=== PATIENT | female | born 1985 | race Caucasian/White ===

== ENCOUNTER 2017-04-16 08:59 | Emergency (ER) | END 2017-04-16 10:15 | disposition home or self-care (01) ==

== ENCOUNTER 2018-03-15 09:34 | Emergency (ER) | END 2018-03-15 10:14 | disposition home or self-care (01) ==

== ENCOUNTER 2018-04-20 15:39 | Emergency (ER) | payer MEDICAID ==
[~2018-04-20] VITALS: Ht 167.6 cm; Wt 64.3 kg
[~2018-04-20 15:39] MED LIST: NAPR-985 PO; OSLT75C PO
[2018-04-20 15:43] VITALS: Ht 167.6 cm; Wt 64.3 kg
[2018-04-20] MEDS ORDERED: ACETAMINOPHEN 325 MG TAB PO ONE (18:30)
[2018-04-20] MEDS ORDERED: ACET500C5 PO (20:17)
--- NOTE | 2018-04-20 20:20 | ERD ---
ER Documentation Chief Complaint Chief Complaint Complains of severe back pain x 5 days HPI 33-year-old female presents with a 5-day history of low back pain. She is approximately 12 weeks by dates. She denies any vaginal bleeding. She has some mild right mid abdominal pain. She denies fevers, vomiting. She denies any urinary complaints. She denies any history of fall or injury. She is a G2 para 1. ROS All systems reviewed and are negative except as per history of present illness. Medications Home Meds Active Scripts Acetaminophen* (Tylophen*) 500 Mg Capsule, 1 CAP PO Q6H PRN for PAIN AND OR ELEVATED TEMP, #20 CAP Prov:DENI FELDER MD 04/20/18 Naproxen* (Naprosyn*) 500 Mg Tablet, 500 MG PO BID PRN for PAIN AND/OR INFLAMMATION, #20 TAB Prov:NICOLA FLANAGAN PA-C 04/16/17 Oseltamivir Phosphate* (Tamiflu*) 75 Mg Capsule, 75 MG PO BID for 5 Days, #10 CAP Prov:NICOLA FLANAGAN PA-C 04/16/17 Allergies Allergies: Coded Allergies: No Known Allergy (Unverified , 03/15/18) PMhx/Soc Hx Neurological Disorder: No Hx Respiratory Disorders: No Hx Cardiac Disorders: No Hx Psychiatric Problems: No Hx Miscellaneous Medical Probl: No Hx Alcohol Use: No Hx Substance Use: No Hx Tobacco Use: No FmHx Family History: No diabetes, No coronary disease, No other Physical Exam Vitals Vital Signs Date Temp Pulse Resp B/P (MAP) Pulse Ox O2 O2 Flow FiO2 Time Delivery Rate 04/20/18 98.0 98 20 129/65 100 15:43 (86) Physical Exam Const: No acute distress Head: Atraumatic Eyes: Normal Conjunctiva ENT: Normal External Ears, Nose and Mouth. Neck: Full range of motion. No meningismus. Resp: Clear to auscultation bilaterally Cardio: Regular rate and rhythm, no murmurs Abd: Soft, non tender, non distended. Normal bowel sounds Skin: No petechiae or rashes Back: No midline or flank tenderness. Tenderness L4-5 paraspinous muscles. No midline tenderness or deformities. Ext: No cyanosis, or edema Neur: Awake and alert Psych: Normal Mood and Affect Results 24 hrs Laboratory Tests Test 04/20/18 18:18 Urine Color YELLOW Urine Clarity SLIGHTLY CLOUDY Urine pH 5.0 Urine Specific [place] 1.029 Urine Ketones NEGATIVE mg/dL Urine Nitrite NEGATIVE mg/dL Urine Bilirubin NEGATIVE mg/dL Urine Urobilinogen NEGATIVE mg/dL Urine Leukocyte Esterase NEGATIVE Yris/ul Urine Microscopic RBC 1 /HPF Urine Microscopic WBC 0 /HPF Urine Squamous Epithelial Cells FEW /HPF Urine Calcium Oxalate Crystals MODERATE /HPF Urine Mucus MODERATE /HPF Urine Hemoglobin NEGATIVE mg/dL Urine Glucose NEGATIVE mg/dL Urine Total Protein NEGATIVE mg/dl Current Medications Medications Dose Sig/Denis Start Time Status Last (Trade) Ordered Route PRN Stop Time Admin Dose Reason Admin 650 mg ONCE ONCE 04/20/18 DC 04/20/18 Acetaminophen PO 18:30 04/20/18 18:18 (Tylenol 18:31 Tab) Procedures/MDM Urine is negative for significant acute abnormalities. Pelvic ultrasound shows approximately 15-week intrauterine without appreciable abnormalities. Patient presents with low back pain for last 4 days, likely muscular skeletal without evidence of cauda equina syndrome, epidural abscess, fracture, dislocation. We will treat with Tylenol, instructions for back exercises, p rimary care follow-up and return precautions. The patient was stable with no new complaints during the ER course. Clinically, there is no current evidence to suggest meningitis, sepsis, acute abdomen, pneumonia, stroke, acute coronary syndrome, pulmonary embolism, aortic dissection or any other emergent condition appearing to require further evaluation or hospitalization. Patient counseled regarding my diagnostic impression and care plan. Prior to discharge all questions answered. Pt agrees with treatment plan and understands strict return precautions. Pt is instructed to follow up with primary care provider within 24- 48 hours. Precautionary instructions provided including instructions to return to the ER if not improving or for any worsening or changing symptoms or concerns. Departure Diagnosis: Primary Impression: Back pain Back pain location: back pain in unspecified location Chronicity: unspecified Back pain laterality: unspecified Qualified Codes: M54.9 - Dorsalgia, unspecified Condition: Stable Patient Instructions: Back Pain (Acute Or Chronic) Referrals: NO PRIMARY,CARE PHYSICIAN (PCP) Additional Instructions: Examines normal hoy. Cheque otro vez con vee doctor primario en el proximo king or regresa para mas o nueva simptomas. DENI FELDER MD Apr 20, 2018 20:20
[2018-04-20 20:47] VITALS: BP 124/60; PULSE 94; RESP 15
== END 2018-04-20 20:47 | disposition home or self-care (01) ==
LOC: FTE 15:39
DX: O99.89 Other specified diseases and conditions complicating pregnancy, childbirth and the puerperium (principal); M54.5 Low back pain; Z3A.15 15 weeks gestation of pregnancy
CPT/HCPCS: 76801; 81001; Z7502; Z7610; 81003

== ENCOUNTER 2018-09-05 12:32 | Emergency (ER) | payer MEDICAID ==
[~2018-09-05] VITALS: Wt 78.8 kg
[~2018-09-05 12:32] MED LIST changes: +ACET500C5 PO; +OSEL75CA23 PO; -OSLT75C PO
[2018-09-05 12:39] VITALS: BP 134/81; PULSE 106; RESP 20
--- NOTE | 2018-09-05 13:08 | ERD ---
ER Documentation Chief Complaint Chief Complaint L SIDED HEADACHE X 4 DAYS, PAIN TO L BUTTOCK; 33 WEEKS HPI 33-year-old woman was 33 weeks by previously confirmed ultrasound and dates presents with left-sided headache x4 to 5 days, pain is nonexertional nonradiating, constant and daily. She has had headaches in the past and denies that this is the worst headache of her life. She also has complaints of low back pain similar to prior episodes. She denies neck pain or neck stiffness, no fevers or chills, no chest pain or shortness of breath, no vaginal bleeding or dysuria. ROS All systems reviewed and are negative except as per history of present illness. Medications Home Meds Active Scripts Acetaminophen* (Tylenol*) 325 Mg Tablet, 2 TAB PO Q8 PRN for PAIN AND OR ELEVATED TEMP, #30 TAB Prov:DONALD GIORDANO MD 09/05/18 Acetaminophen* (Tylophen*) 500 Mg Capsule, 1 CAP PO Q6H PRN for PAIN AND OR ELEVATED TEMP, #20 CAP Prov:DENI FELDER MD 04/20/18 Naproxen* (Naprosyn*) 500 Mg Tablet, 500 MG PO BID PRN for PAIN AND/OR INFLAMMATION, #20 TAB Prov:NICOLA FLANAGAN PA-C 04/16/17 Oseltamivir Phosphate* (Tamiflu*) 75 Mg Capsule, 75 MG PO BID for 5 Days, #10 CAP Prov:NICOLA FLANAGAN PA-C 04/16/17 Allergies Allergies: Coded Allergies: No Known Allergy (Unverified , 03/15/18) PMhx/Soc History of Surgery: Yes (Uterus) Anesthesia Reaction: No Hx Neurological Disorder: No Hx Respiratory Disorders: No Hx Cardiac Disorders: No Hx Psychiatric Problems: No Hx Miscellaneous Medical Probl: No Hx Alcohol Use: No Hx Substance Use: No Hx Tobacco Use: No FmHx Family History: No diabetes Physical Exam Vitals Vital Signs Date Temp Pulse Resp B/P (MAP) Pulse Ox O2 O2 Flow FiO2 Time Delivery Rate 09/05/18 98.1 106 20 134/81 98 12:39 (98) Physical Exam GENERAL: Well-developed, well-nourished, well-hydrated, in no apparent distress, looks nontoxic in appearance HEENT: Moist mucous membranes, pink conjunctiva, no cervical spine tenderness or step-off deformities, no goiter, no jaundice or icterus, extraocular movements intact without pain. No submandibular induration, and no pharyngeal erythema NEURO: Alert and oriented 3, cranial nerves II through XII intact bilaterally, pupils equal round reactive to light, no focal deficits or facial asymmetry, sensation intact distally Strength 5/5 in upper and lower extremities bilaterally CARDIAC: Regular rate and rhythm, no murmurs rubs or gallops LUNGS: Clear bilaterally no wheezing crackles or stridor ABDOMEN: Soft nontender gravid abdomen, no rigidity SKIN: Warm and dry to touch, no abrasions, contusions, or hematomas, no lacerations, no ecchymosis, no target lesions, and without ulcers EXTREMITIES: No clubbing cyanosis or edema, calves are bilaterally symmetrical, no Homans sign, no popliteal cord sign. Distal pulses equal and bilateral PSYCH: Normal affect without agitation or irritability Results 24 hrs Laboratory Tests Test 09/05/18 13:35 Urine Color YELLOW Urine Clarity CLEAR Urine pH 6.0 Urine Specific [place] 1.009 Urine Ketones NEGATIVE mg/dL Urine Nitrite NEGATIVE mg/dL Urine Bilirubin NEGATIVE mg/dL Urine Urobilinogen NEGATIVE mg/dL Urine Leukocyte Esterase NEGATIVE Yris/ul Urine Hemoglobin NEGATIVE mg/dL Urine Glucose 2+ mg/dL Urine Total Protein NEGATIVE mg/dl Current Medications Medications Dose Sig/Denis Start Time Status Last (Trade) Ordered Route PRN Stop Time Admin Dose Reason Admin 650 mg ONCE ONCE 09/05/18 DC 09/05/18 Acetaminophen PO 13:30 14:01 (Tylenol 09/05/18 13:31 Tab) Procedures/MDM I administered acetaminophen 650 mg p.o. x1. Urinalysis was negative for infection. Differential diagnoses considered, included but not limited to acute coronary syndrome, pulmonary embolism, aortic dissection, abdominal aortic aneurysm, sepsis, stroke, meningitis, encephalitis, pneumonia, appendicitis, cholecystitis, bowel obstruction, pyelonephritis, nephrolithiasis, cystitis, as well as metabolic, hematologic, and electrolyte abnormalities. As well as abscess, cellulitis, fractures, and dislocations. Patient feels much better at this time, and vital signs are normal, symptoms have improved. I did give strict instructions to return to the ED if symptoms continue or worsen, patient will otherwise follow-up with primary care physician. Patient understood instructions and agreed to plan. Disclaimer: Inadvertent spelling and grammatical errors are likely due to EHR/dictation software use and do not reflect on the overall quality of patient care. Also, please note that the electronic time recorded on this note does not necessarily reflect the actual time of the patient encounter. Departure Diagnosis: Primary Impression: Headache Headache type: tension-type Headache chronicity pattern: acute headache Intractability: not intractable Qualified Codes: G44.209 - Tension-type headache, unspecified, not intractable Additional Impression: Third trimester Condition: Good DONALD GIORDANO MD September 05, 2018 13:08
[2018-09-05] MEDS ORDERED: ACETAMINOPHEN 325 MG TAB PO ONE (13:30)
[2018-09-05] MEDS ORDERED: ACET325T33 PO (14:44)
== END 2018-09-05 15:02 | disposition home or self-care (01) ==
LOC: FTE 12:32
DX: O99.353 Diseases of the nervous system complicating pregnancy, third trimester (principal); G44.209 Tension-type headache, unspecified, not intractable; Z3A.33 33 weeks gestation of pregnancy
CPT/HCPCS: 81003; Z7502; Z7610; 99283

== ENCOUNTER 2018-09-18 11:11 | Outpatient (CLI) | payer MEDICAID ==
[~2018-09-18 11:11] MED LIST changes: +ACET325T33 PO
[2018-09-18] MEDS ORDERED: PREN1TAB71 PO (11:25)
[2018-09-18] MEDS ORDERED: ACETAMINOPHEN 500 MG TAB PO STA (13:13)
--- NOTE | 2018-09-18 14:14 | PN ---
Triage Information Date/Time September 182018 Reason for visit: Sent in from clinic to rule out -induced hypertension because of a headache Weeks of Gestation 35 weeks plus /Para 2 para 1 Diabetes: none Hypertention: none Objective See nurse's notes Heart Rate: 140's Heart Rate Comments Reactive Results/Medications Result Diagram: 09/18/18 1118 09/18/18 1118 Results 24 hrs Laboratory Tests Test 09/18/18 11:18 White Blood Count 9.0 Red Blood Count 3.98 L Hemoglobin 11.8 L Hematocrit 35.5 L Mean Corpuscular Volume 89.2 Mean Corpuscular Hemoglobin 29.6 Mean Corpuscular Hemoglobin Concent 33.2 Red Cell Distribution Width 13.5 Platelet Count 212 Mean Platelet Volume 10.0 Immature Granulocytes % 0.700 H Neutrophils % 61.1 Lymphocytes % 25.7 Monocytes % 5.5 Eosinophils % 6.7 Basophils % 0.3 Nucleated Red Blood Cells % 0.0 Immature Granulocytes # 0.060 H Neutrophils # 5.5 Lymphocytes # 2.3 Monocytes # 0.5 Eosinophils # 0.6 H Basophils # 0.0 Nucleated Red Blood Cells # 0.0 Urine Color YAW Urine Clarity CLEAR Urine pH 5.0 Urine Specific [place] 1.021 Urine Ketones TRACE A Urine Nitrite NEGATIVE Urine Bilirubin NEGATIVE Urine Urobilinogen NEGATIVE Urine Leukocyte Esterase 1+ H Urine Microscopic RBC 5 Urine Microscopic WBC 10 H Urine Squamous Epithelial Cells MODERATE Urine Bacteria FEW A Urine Mucus FEW A Urine Hemoglobin NEGATIVE Urine Glucose 2+ H Urine Total Protein NEGATIVE Sodium Level 137 Potassium Level 3.7 Chloride Level 106 Carbon Dioxide Level 21 Anion Gap 10 Blood Urea Nitrogen 6 L Creatinine 0.37 L Est Glomerular Filtrat Rate mL/min > 60 Glucose Level 129 Uric Acid 2.8 L Calcium Level 9.1 Total Bilirubin 0.3 Direct Bilirubin 0.00 Indirect Bilirubin 0.3 Aspartate Amino Transf (AST/SGOT) 15 Alanine Aminotransferase (ALT/SGPT) 6 L Alkaline Phosphatase 153 H Total Protein 7.0 Albumin 3.6 Globulin 3.40 H Albumin/Globulin Ratio 1.05 Imaging Results Normal biophysical profile. Disposition: Discharge Assessment/Plan Patient was recommended to take Tylenol for headaches Thousand milligrams of Tylenol was given to the patient with mild improvement of her symptoms We will follow patient as outpatient PIH ruled out AMELIA MILTON MD Sep 18, 2018 14:13
--- NOTE | 2018-09-18 14:15 | TRIAGE ---
OB Triage Datetime Report Generated by CPN: 09/18/2018 14:14 Datetime: 09/18/2018 13:08 Stage of : OB Triage Labor Evaluation Frequency: 0 Monitor Mode: External Resting Tone Pilot Station: Relaxed Heart Rate FHR Baseline Rate: 135 Monitor Mode: External US Variability: Moderate 6-25 bpm Accelerations: 15X15 Decelerations: None Category: Category I Datetime: 09/18/2018 12:05 Stage of : OB Triage Labor Evaluation Frequency: 0 Monitor Mode: External Pattern: Normal: <= 5 Contractions in 10 Minutes Resting Tone Pilot Station: Relaxed Heart Rate FHR Baseline Rate: 135 Monitor Mode: External US Variability: Moderate 6-25 bpm Accelerations: 15X15 Decelerations: None Category: Category I Pain Assessment Pain Scale: 8 Pain Presence: Intermittent Pain Type: Ache Pain Location: Head Pain Goal: 0 Datetime: 09/18/2018 11:27 Stage of : OB Triage Assessment Type: Triage Maternal Assessment Level of Consciousness: Fully Conscious DTR's/Clonus: DTRs 2+; No Clonus Headache: Denies Blurred Vision: No Respiratory Effort: Unlabored; Regular Rhythm; Equal Expansion Breath Sounds, Left: Clear and Equal Breath Sounds, Right: Clear and Equal Nausea/Vomiting: Denies RUQ Epigastric Pain: Denies Facial Edema: None Fall Risk Assessment History of Falling: (0) No Secondary Diagnosis: (0) No Ambulatory Aid: (0) Bedrest/Nurse Assist IV Therapy: (0) No Gait: (0) Normal/Bedrest/Immobile Mental Status: (0) Oriented to Own Ability Fall Score: 0 Fall Risk Score Definition: No Risk: No action required Comments: US AT BEDSIDE Pain Assessment Pain Scale: 7 Pain Presence: Intermittent Pain Type: Cramping Datetime: 09/18/2018 11:19 Time of Arrival: 09/18/2018 11:05 EGA: 35.4 Arrived By: Ambulatory Arrived From: Home Chief Complaint: SENT FROM CLINIC FOR ELEVATED BLLOD PRESUURE HEADACHE Contractions: Denies/Absent Rupture of Membranes: Denies Vaginal Bleeding: None Vaginal Discharge: Denies Recent Sexual Intercouse: Denies Abdominal Trauma: Not Applicable Patient Complaints: Other Time Provider Notified: 09/18/2018 14:10 Provider Notified: DR. ALEX Initial Plan: NST BPAva PIH WORK UP
== END 2018-09-18 14:14 | disposition home or self-care (01) ==
LOC: OBT 11:11 → L-D 11:12 → OBT 14:14
PROVIDERS: ATTEND Obstetrics & Gynecology
DX: O24.419 Gestational diabetes mellitus in pregnancy, unspecified control (principal); R51 Headache; Z3A.35 35 weeks gestation of pregnancy
CPT/HCPCS: 76815; 76818; 80053; 81001; 84560; 85025; Z7500; Z7610; G0463

== ENCOUNTER 2018-10-20 07:58 | Inpatient (IN) | payer MEDICAID ==
[~2018-10-20] VITALS: Ht 162.6 cm; Wt 83.9 kg
[~2018-10-20 07:58] MED LIST changes: -ACET325T33 PO; -NAPR-985 PO; -OSEL75CA23 PO; +PREN1TAB71 PO
[2018-10-20 08:04] VITALS: Ht 162.6 cm; Wt 83.9 kg
--- NOTE | 2018-10-20 08:05 | TRIAGE ---
OB Triage Datetime Report Generated by CPN: 10/20/2018 08:05 Datetime: 10/20/2018 07:58 Assessment Type: Triage Maternal Assessment Level of Consciousness: Keenly Alert, Responsive DTR's/Clonus: DTRs 2+; No Clonus Headache: Denies Blurred Vision: No Respiratory Effort: Unlabored; Regular Rhythm; Equal Expansion Breath Sounds, Left: Clear and Equal Breath Sounds, Right: Clear and Equal Nausea/Vomiting: Denies RUQ Epigastric Pain: Denies Lower Extremities Edema: None Degree: None Upper Extremities Edema: None Degree: None Facial Edema: None Fall Risk Assessment History of Falling: (0) No Secondary Diagnosis: (0) No Ambulatory Aid: (0) Bedrest/Nurse Assist IV Therapy: (0) No Gait: (0) Normal/Bedrest/Immobile Mental Status: (0) Oriented to Own Ability Fall Score: 0 Fall Risk Score Definition: No Risk: No action required Datetime: 10/20/2018 07:50 Time of Arrival: 10/20/2018 07:50 EGA: 39.5 Arrived By: Ambulatory Arrived From: Home Chief Complaint: R/O LABOR Movement: Present Contractions: Regular Time Contractions Began: 10/20/2018 02:00 Rupture of Membranes: Denies Vaginal Discharge: Denies Recent Sexual Intercouse: Denies Abdominal Trauma: Not Applicable Time Provider Notified: 10/20/2018 08:00 Provider Notified: ISAI Initial Plan: VE AND MONITOR Datetime: 09/18/2018 11:27 Fall Score: 0 Fall Risk Score Definition: No Risk: No action required Datetime: 09/18/2018 11:19 EGA: 35.1
[2018-10-20] MEDS: LACTATED RINGER'S 1,000 ML IV SCH ×3 (08:25→22:34)
[2018-10-20] MEDS ORDERED: OXYTOCIN 30 UNITS/LR 500 ML IV PRN ×2 (08:30→15:00)
[2018-10-20] MEDS ORDERED: BUTORPHANOL 2 MG INJ IV PRN (08:30)
[2018-10-20] MEDS ORDERED: AMPICILLIN 2 GM/NS (PMX) 100 ML IV ONE (08:30)
[2018-10-20] MEDS ORDERED: CARBOPROST 250 MCG INJ IM PRN ×2 (08:30→15:00)
[2018-10-20] MEDS ORDERED: OXYTOCIN 30 UNITS/LR 500 ML IV SCH ×3 (08:30→14:57)
[2018-10-20] MEDS ORDERED: LIDOCAINE 1% (MPF) 30 ML INJ INJ PRN (08:30)
[2018-10-20] MEDS ORDERED: MISOPROSTOL 200 MCG TAB PR PRN ×2 (08:30→15:00)
[2018-10-20] MEDS ORDERED: METHYLERGONOVINE 0.2 MG INJ IM PRN ×2 (08:30→15:00)
--- NOTE | 2018-10-20 12:28 | HP ---
Date/Time of Note Date/Time of Note DATE: 10/20/18 TIME: 12:17 OB - History Hx of Present Free Text/Dictation History of present illness: 33-year-old G 2 P 1 at 39 and 5 day presents with uterine contractions since 3 AM. Obstetric history: vaginal delivery Gynecology: Last menstrual period approximately 01/04/2018, last pap 02/2018 negative Past medical history: none Surgical history: LEEP Family history: none Social history: negative for tobacco/all/recreational drugs Allergies: no known drug allergies Medications: vitamins Physical exam Vitals: Stable General: No apparent distress Cardiovascular: Regular rate and rhythm Pulmonary: Clear to auscultation bilaterally Abdomen: Gravid Uterus: Neil's 3500 g vertex Extremities: Nontender to palpation Psychological: Alert oriented EFM: Category 1 125/+atul/+accels/-decels labs: O positive H/H 13.4/39.8 Rubella immune Hepatitis B surface antigen nonreactive RPR NR HIV negative GC/CT negative GBS negative 1h GTT normal Assessment/plan: 1. Labor-admit to L&D. Routine labs/vitals/cefm/toco. declines analgesia. Past Family/Social History * Past Medical, Surgical, Family and Obstetric Histories reviewed from chart. OB Admission Exam Last 72 hours Lab Results CBC & BMP 10/20/18 08:20 MILESTONEDANNA MD Oct 20, 2018 12:28
[2018-10-20] MEDS ORDERED: AMPICILLIN 1 GM/NS (PMX) 50 ML IV SCH (12:30)
[2018-10-20] MEDS ORDERED: HYDROmorphONE 0.5 MG/0.5 ML SYG IM STA (14:05)
[2018-10-20] MEDS ORDERED: HYDROmorphONE 0.5 MG/0.5 ML SYG IV STA (14:11)
[2018-10-20] MEDS ORDERED: HYDROmorphONE 0.5 MG/0.5 ML SYG IV PRN (14:30)
--- NOTE | 2018-10-20 14:56 | LDN ---
Date/Time of Note Date/Time of Note DATE: 10/20/18 TIME: 14:56 Delivery Summary Spontaneous vaginal delivery of a viable term male infant in OA presentation. Mouth and nares bulb suctioned. Cord clamped x2 and divided between after one minute. placed on mother's abdomen. Cord blood collected. Placenta delivered spontaneously, intact with three vessel cord. Perineum inspected and second laceration was noted and repaired with 2-0 Vicryl on an SH and CT1. Hemostasis noted. Fundus firm. The cervix was intact. weight 3725 g Apgars 9/9 Estimated blood loss 450 ml Copies To: CC: AMELIA MILTON MD ; DANNA RAMIREZ MD Oct 20, 2018 14:56
[2018-10-20] MEDS ORDERED: ZOLPIDEM 5 MG TAB PO PRN (15:00)
[2018-10-20] MEDS ORDERED: WITCH HAZEL/GLYCERIN PAD PR PRN (15:00)
[2018-10-20] MEDS ORDERED: ACETAMINOPHEN 325 MG TAB PO PRN (15:00)
[2018-10-20] MEDS: IBUPROFEN 600 MG TAB PO SCH ×3 (15:00→23:52)
[2018-10-20] MEDS ORDERED: NACL 0.9% 3 ML SYG IV SCH (15:00)
[2018-10-20] MEDS ORDERED: ONDANSETRON 4 MG INJ IV PRN (15:00)
[2018-10-20] MEDS ORDERED: BENZOCAINE 20% 56 ML SPRAY TOP PRN (15:00)
[2018-10-20] MEDS ORDERED: DIBUCAINE 1% 30 GM OINT TOP PRN (15:00)
[2018-10-20] MEDS ORDERED: MAGNESIUM HYDROXIDE 30ML CUP PO PRN (15:00)
[2018-10-20] MEDS ORDERED: DIPHENHYDRAMINE 25 MG CAP PO PRN (15:00)
[2018-10-20 15:50] VITALS: BP 107/71; PULSE 84; RESP 18
[2018-10-20 17:00] VITALS: BP_SYST 84; PULSE 84; RESP 18
[2018-10-20 18:00] VITALS: BP 113/61; PULSE 86; RESP 18
[2018-10-20] MEDS: LANOLIN HPA 1 PKT TOP PRN (18:00)
[2018-10-20 20:00] VITALS: BP 103/56; PULSE 100; RESP 18
[2018-10-20] MEDS: SENNA/DOCUSATE NA (8.6MG/50MG) TAB PO PRN (21:15)
[2018-10-21] VITALS (15 sets, daily range): BP systolic 106–125; BP diastolic 61–83; PULSE 65–98; RESP 9–20
[2018-10-21] MEDS: OXYCODONE/ASPIRIN (4.88/325) TAB PO PRN (04:47)
[2018-10-21] MEDS: LACTATED RINGER'S 1,000 ML IV SCH ×3 (05:38→19:00)
[2018-10-21] MEDS: IBUPROFEN 600 MG TAB PO SCH ×2 (06:00→12:00)
--- NOTE | 2018-10-21 14:01 | PN ---
Date/Time of Note Date/Time of Note DATE: 10/21/18 TIME: 14:00 Assessment/Plan VTE Prophylaxis Risk score (from Ns)>0 risk: 1 SCD applied (from Ns): No SCD contraindicated: low risk/ambulating Pharmacological prophylaxis: NA/contraindicated Pharm contraindication: low risk/ambulating Lines/Catheters IV [facility] Peripheral IV Assessment/Plan Assessment/Plan Status post vaginal delivery Desires sterilization We will proceed with BTL Result Diagram: 10/21/18 0720 Results 24hrs Laboratory Tests Test 10/21/18 06:38 10/21/18 07:20 Lab Scanned Report REFERENCE LAB Hemoglobin 10.8 L Hematocrit 32.4 L Subjective 24 Hr Interval Summary Free Text/Dictation Has no major medical complaints Constitutional: no complaints, improved Eyes: no complaints ENT: no complaints Respiratory: no complaints Cardiovascular: no complaints Gastrointestinal: no complaints Genitourinary: no complaints Musculoskeletal: no complaints Skin: no complaints Neurologic: no complaints Endocrine: no complaints Lymphatic: no complaints Psychological: no complaints, nl mood/affect Immunologic: no complaints Exam/Review of Systems Exam Vitals Vital Signs Date Temp Pulse Resp B/P (MAP) Pulse Ox O2 O2 Flow FiO2 Time Delivery Rate 10/21/18 97.8 65 20 106/71 Room Air 04:23 (83) Intake and Output 10/20/18 10/20/18 10/21/18 1515:00 23:00 07:00 IntakeIntake Total 1200 ml 375 ml OutputOutput Total 850 ml 635 ml BalanceBalance 350 ml -260 ml Exam Abdomen is soft and fundus is firm Constitutional: alert, oriented, well developed Psych: no complaints, nl mood/affect Head: normocephalic, atraumatic Eyes: nl conjunctiva, EOMI, nl lids, nl sclera, PERRL ENMT: nl external ears & nose, nl lips & teeth, nl nasal mucosa & septum Neck: supple, non-tender Respiratory: clear to auscultation, normal air movement Cardiovascular: regular rate and rhythm, nl pulses Gastrointestinal: soft, nl liver, spleen, non-tender Musculoskeletal: nl extremities to inspection, nl gait and stance Extremities: normal pulses Neurological: SAILING OFFICER II-XII intact, nl mental status, nl speech, nl strength Skin: nl turgor; No rash or lesions Lymph: nl lymph nodes Results Results 24hrs Laboratory Tests Test 10/21/18 06:38 10/21/18 07:20 Lab Scanned Report REFERENCE LAB Hemoglobin 10.8 L Hematocrit 32.4 L Medications Medication Current Medications Lactated Ringer's 1,000 ml @ 125 mls/hr Q8H IV Last administered on 10/21/18at 05:38; Admin Dose 125 MLS/HR; Start 10/20/18 at 08:12 Butorphanol Tartrate (Stadol) 2 mg Q2H PRN IV .PAIN SCALE 6-10; Start 10/20/18 at 08:30 Lidocaine (Xylocaine 1% (Mpf)) 30 ml ONCE PRN INJ .EPISIOTOMY; Start 10/20/18 at 08:30 Oxytocin/Lactated Ringer's 500 ml @ 500 mls/hr ONCE POST IV Last administered on 10/20/18at 14:32; Admin Dose 500 MLS/HR; Start 10/20/18 at 08:30 Oxytocin/Lactated Ringer's 500 ml @ 125 mls/hr POST IV Last administered on 10/20/18at 14:38; Admin Dose 125 MLS/HR; Start 10/20/18 at 08:30 IV Flush (NS 3 ml) 3 ml PER PROTOCOL IV ; Start 10/20/18 at 15:00 Ibuprofen (Motrin) 600 mg Q6 PO Last administered on 10/20/18at 23:52; Admin Dose 600 MG; Start 10/20/18 at 15:00 Acetaminophen (Tylenol Tab) 650 mg Q4H PRN PO .PAIN 1-5; Start 10/20/18 at 15:00 Oxycodone/Aspirin (Percodan) 2 tab Q3H PRN PO .PAIN 6-10 Last administered on 10/21/18at 04:47; Admin Dose 1 TAB; Start 10/20/18 at 15:00 Ondansetron HCl (Zofran Inj) 4 mg Q6H PRN IV NAUSEA/VOMITING; Start 10/20/18 at 15:00 Diphenhydramine HCl (Benadryl) 25 mg Q6H PRN PO .PRUTITUS; Start 10/20/18 at 15: 00 Zolpidem Tartrate (Ambien) 5 mg QHS PRN PO .INSOMNIA; Start 10/20/18 at 15:00 Senna/Docusate Sodium (Senokot-S) 1 tab BID PRN PO .CONSTIPATION Last administered on 10/20/18 21:15; Admin Dose 1 TAB; Start 10/20/18 at 15:00 Magnesium Hydroxide (Milk Of Mag) 30 ml Q12H PRN PO .CONSTIPATION; Start 10/20/18 at 15:00 Witch Ginger/ Glycerin (Tucks Pads) 1 pad BEDSIDE MEDICATION PRN AL .HEMORRHOID/EPISIOTOMY PAIN Last administered on 10/20/18at 17:59; Admin Dose 1 PAD; Start 10/20/18 at 15:00 Benzocaine (Dermoplast [place]) 1 spray BEDSIDE MEDICATION PRN TOP .HEMMORHOID/EPISIOTOMY PAIN Last administered on 10/20/18 18:00; Admin Dose 1 SPRAY; Start 10/20/18 at 15:00 Dibucaine (Nupercainal) 1 applic BEDSIDE MEDICATION PRN TOP .HEMMORHOID/EPISIOTOMY; Start 10/20/18 at 15:00 Lanolin (Lanolin Hpa) 1 applic BEDSIDE MEDICATION PRN TOP .NIPPLES Last administered on 10/20/18 18:00; Admin Dose 1 APPLIC; Start 10/20/18 at 15:00 Measles/Mumps/ Rubella Vaccine Live (Mmr Ii Vaccine) 0.5 ml ONCE ONCE SC* ; St art 10/22/18 at 09:00; Stop 10/22/18 at 09:01 Diphtheria/ Tetanus/Acell Pertussis (Adacel) 0.5 ml ONCE ONCE IM* ; Start 10/22/18 at 09:00; Stop 10/22/18 at 09:01 Oxytocin/Lactated Ringer's 500 ml @ 0 mls/hr ONCE PRN IV .VAGINAL BLEEDING; Start 10/20/18 at 15:00 Methylergonovine Maleate (Methergine) 0.2 mg ONCE PRN IM .VAGINAL BLEEDING; Start 10/20/18 at 15:00 Carboprost Tromethamine (Hemabate) 250 mcg ONCE PRN IM .VAGINAL BLEEDING; Start 10/20/18 at 15:00 Misoprostol (Cytotec) 1,000 mcg ONCE PRN AL .VAGINAL BLEEDING; Start 10/20/18 at 15:00 AMELIA MILTON MD Oct 21, 2018 14:01
[2018-10-21] MEDS ORDERED: BUPIVACAINE 0.25%/EPI (SDV) 30 ML INJ ONE (14:47)
[2018-10-21] MEDS ORDERED: SEVOFLURANE 15 MIN ONE (15:30)
--- NOTE | 2018-10-21 15:44 | PREAC ---
Date/Time of Note Date/Time of Note DATE: 10/21/18 TIME: 15:42 Anesthesia Eval and Record Evaluation Time Pre-Procedure Interview DATE: 10/21/18 TIME: 15:42 Age 33 Sex female NPO: 8 hrs Preoperative diagnosis Patient request for BTL Planned procedure Post Bilateral Tubal Ligation Past Medical History Past Medical History: Includes Heme: Anemia : : (2), Para: (0) Surgery & Anesthesia Issues No known issue Meds Anticoagulation: No Beta Gamaliel within 24 hr: No Reason Beta Gamaliel not given: Pt. not on B-Gamaliel Active Scripts Acetaminophen* (Tylophen*) 500 Mg Capsule, 1 CAP PO Q6H PRN for PAIN AND OR ELEVATED TEMP, #20 CAP Prov:DENI FELDER MD 04/20/18 Reported Medications Vit No.130/Iron/FA ( Tablet) 1 Each Tablet, 1 EACH PO 09/18/18 Current Medications Lactated Ringer's 1,000 ml @ 125 mls/hr Q8H IV Last administered on 10/21/18at 05:38; Admin Dose 125 MLS/HR; Start 10/20/18 at 08:12 Butorphanol Tartrate (Stadol) 2 mg Q2H PRN IV .PAIN SCALE 6-10; Start 10/20/18 at 08:30 Lidocaine (Xylocaine 1% (Mpf)) 30 ml ONCE PRN INJ .EPISIOTOMY; Start 10/20/18 at 08:30 Oxytocin/Lactated Ringer's 500 ml @ 500 mls/hr ONCE POST IV Last administered on 10/20/18at 14:32; Admin Dose 500 MLS/HR; Start 10/20/18 at 08:30 Oxytocin/Lactated Ringer's 500 ml @ 125 mls/hr POST IV Last administered on 10/20/18at 14:38; Admin Dose 125 MLS/HR; Start 10/20/18 at 08:30 IV Flush (NS 3 ml) 3 ml PER PROTOCOL IV ; Start 10/20/18 at 15:00 Ibuprofen (Motrin) 600 mg Q6 PO Last administered on 10/20/18at 23:52; Admin Dose 600 MG; Start 10/20/18 at 15:00 Acetaminophen (Tylenol Tab) 650 mg Q4H PRN PO .PAIN 1-5; Start 10/20/18 at 15:00 Oxycodone/Aspirin (Percodan) 2 tab Q3H PRN PO .PAIN 6-10 Last administered on 10/21/18at 04:47; Admin Dose 1 TAB; Start 10/20/18 at 15:00 Ondansetron HCl (Zofran Inj) 4 mg Q6H PRN IV NAUSEA/VOMITING; Start 10/20/18 at 15:00 Diphenhydramine HCl (Benadryl) 25 mg Q6H PRN PO .PRUTITUS; Start 10/20/18 at 15:00 Zolpidem Tartrate (Ambien) 5 mg QHS PRN PO .INSOMNIA; Start 10/20/18 at 15:00 Senna/Docusate Sodium (Senokot-S) 1 tab BID PRN PO .CONSTIPATION Last administered on 10/20/18at 21:15; Admin Dose 1 TAB; Start 10/20/18 at 15:00 Magnesium Hydroxide (Milk Of Mag) 30 ml Q12H PRN PO .CONSTIPATION; Start 10/20/18 at 15:00 Witch Ginger/ Glycerin (Tucks Pads) 1 pad BEDSIDE MEDICATION PRN MN .HEMORRHOID/EPISIOTOMY PAIN Last administered on 10/20/18at 17:59; Admin Dose 1 PAD; Start 10/20/18 at 15:00 Benzocaine (Dermoplast [place]) 1 spray BEDSIDE MEDICATION PRN TOP .HEMMORHOID/EPISIOTOMY PAIN Last administered on 10/20/18at 18:00; Admin Dose 1 SPRAY; Start 10/20/18 at 15:00 Dibucaine (Nupercainal) 1 applic BEDSIDE MEDICATION PRN TOP .HEMMORHOID/EPISIOTOMY; Start 10/20/18 at 15:00 Lanolin (Lanolin Hpa) 1 applic BEDSIDE MEDICATION PRN TOP .NIPPLES Last administered on 10/20/18at 18:00; Admin Dose 1 APPLIC; Start 10/20/18 at 15:00 Measles/Mumps/ Rubella Vaccine Live (Mmr Ii Vaccine) 0.5 ml ONCE ONCE SC* ; Start 10/22/18 at 09:00; Stop 10/22/18 at 09:01 Diphtheria/ Tetanus/Acell Pertussis (Adacel) 0.5 ml ONCE ONCE IM* ; Start 10/22/18 at 09:00; Stop 10/22/18 at 09:01 Oxytocin/Lactated Ringer's 500 ml @ 0 mls/hr ONCE PRN IV .VAGINAL BLEEDING; Start 10/20/18 at 15:00 Methylergonovine Maleate (Methergine) 0.2 mg ONCE PRN IM .VAGINAL BLEEDING; Start 10/20/18 at 15:00 Carboprost Tromethamine (Hemabate) 250 mcg ONCE PRN IM .VAGINAL BLEEDING; Start 10/20/18 at 15:00 Misoprostol (Cytotec) 1,000 mcg ONCE PRN [place] .VAGINAL BLEEDING; Start 10/20/18 at 15:00 Meds reviewed: Yes Allergies Coded Allergies: No Known Allergy (Unverified , 10/20/18) Allergies Reviewed: Yes Labs/Studies Labs Reviewed: Reviewed by anesthesiologist Result Diagram: 10/21/18 0720 Laboratory Tests 10/21/18 07:20 test: Negative (post ) Studies: ECG (n/a), CXR (n/a) Pre-procedure Exam Last vitals Vital Signs Date Temp Pulse Resp B/P (MAP) Pulse Ox O2 O2 Flow FiO2 Time Delivery Rate 10/21/18 97.8 65 20 106/71 Room Air 04:23 (83) Airway: Adequate mouth opening, Adequate thyromental dist Mallampati: Mallampati II Teeth: Normal Lung: Normal Heart: Normal ASA Physical Status ASA physical status: 2 Emergency: None Planned Anesthetic General/MAC: ETT Nerve block: TAP (bilateral) Planned Pain Management Single shot nerve block, Parenteral pain med Pre-operative Attestations Prior to commencing anesthesia and surgery, the patient was re-evaluated, there was verification of: *The patient's identity *The results of appropriate recent lab work and preoperative vital signs *The above evaluation not changing prior to induction *Anesthetic plan, risk benefits, alternative and complications discussed with patient/family; questions answered; patient/family understands, accepts and wishes to proceed. MAXX KUMAR MD Oct 21, 2018 15:44
[2018-10-21] MEDS ORDERED: ROCURONIUM 50 MG INJ ONE ×2 (15:49→18:29)
[2018-10-21] MEDS ORDERED: MIDAZOLAM 1 MG/ML 2 ML INJ ONE (15:49)
[2018-10-21] MEDS ORDERED: FENTAnyl 50 MCG/ML VIAL ONE ×2 (15:49→18:49)
[2018-10-21] MEDS ORDERED: PROPOFOL 20 ML ONE (15:49)
[2018-10-21] MEDS ORDERED: ROPIVACAINE 0.2% 20 ML VIAL ONE (15:49)
[2018-10-21] MEDS ORDERED: HYDROmorphONE 1 MG/5 ML IV SYRINGE IV PRN ×2 (16:00)
[2018-10-21] MEDS ORDERED: OXYCODONE/ACETAMINOPHEN (5/325) TAB PO PRN (16:00)
[2018-10-21] MEDS ORDERED: METOCLOPRAMIDE 10 MG INJ IV PRN (16:00)
[2018-10-21] MEDS ORDERED: ONDANSETRON 4 MG INJ IV PRN (16:00)
[2018-10-21] MEDS ORDERED: FENTAnyl 50 MCG/ML VIAL IV PRN (16:00)
[2018-10-21] MEDS ORDERED: EPHEDrine 25 MG/5 ML SYG IV PRN (16:00)
[2018-10-21] MEDS ORDERED: CEFAZOLIN 1 GM INJ ONE (16:34)
[2018-10-21] MEDS ORDERED: ONDANSETRON 4 MG INJ ONE (16:34)
[2018-10-21] MEDS ORDERED: DEXAMETHASONE 4 MG/ML 5 ML INJ ONE (16:34)
[2018-10-21] MEDS ORDERED: METOCLOPRAMIDE 10 MG INJ ONE (16:34)
[2018-10-21] MEDS ORDERED: KETOROLAC 30 MG INJ ONE (16:35)
[2018-10-21] MEDS ORDERED: VANCOMYCIN 1 GM (PMX) 250 ML ONE (16:58)
[2018-10-21] MEDS ORDERED: GLYCOPYRROLATE 0.4 MG INJ ONE (17:05)
[2018-10-21] MEDS ORDERED: NEOSTIGMINE 3 MG/3 ML SYRINGE ONE (17:05)
[2018-10-21] MEDS ORDERED: ACETAMINOPHEN 500 MG TAB PO STA (17:17)
[2018-10-21] MEDS ORDERED: KETOROLAC 60 MG INJ IM STA (17:17)
--- NOTE | 2018-10-21 17:19 | PAC ---
Date/Time of Note Date/Time of Note DATE: 10/21/18 TIME: 17:18 Post-Anesthesia Notes Post-Anesthesia Note Last documented vital signs Vital Signs Date Temp Pulse Resp B/P (MAP) Pulse Ox O2 O2 Flow FiO2 Time Delivery Rate 10/21/18 97.8 65 20 106/71 100 Room Air 17:13 (83) Activity: WNL Respiratory function: WNL Cardiovascular function: WNL Mental status: Baseline Pain reasonably controlled: Yes Hydration appropriate: Yes Nausea/Vomiting absent: Yes MAXX KUMAR MD Oct 21, 2018 17:19
--- NOTE | 2018-10-21 17:28 | OPR ---
Operative Report Planned Procedure Free Text/Dictation 33-year-old female status post vaginal delivery for bilateral tubal ligation Procedure date Oct 21, 2018 Procedure(s) Bilateral tubal ligation Performed by see signature line Anesthesiologist: MAXX KUMAR MD Pre-procedure diagnosis Status post vaginal delivery Multiparity with desire for sterilization [id number] Anesthesia Type: [id number] general Post-Procedure Post-procedure diagnosis Status post bilateral tubal ligation Findings Normal-appearing right and left fallopian tubes and ovaries uterus Estimated Blood Loss: minimal Specimen(s) Segments of right and left fallopian tubes Grafts/Implant(s) none Complication(s) none Pt Condition post procedure: stable Disposition: PACU Procedure Description The patient was placed on the OR table in supine position. Spinal anesthesia was placed. A Leiva catheter was then inserted into urinary bladder under aseptic condition. After induction of spinal anesthesia, with the patient in supine position, abdominal area was prepped and draped for usual tubal ligation procedure. Under satisfactory anesthesia, a small incision 2 to 3 cm in length was placed just below belly button, incision extended laterally to 1.5 cm lateral to the linea nigra on either side. Incision was carried down with sharp and blunt dissection until fascia was reached. Anterior recti muscle fascia was incised in the midportion. Incision extended laterally to the border of the skin incision. Peritoneum was visualized. Avoiding bowel or bladder, incision was made in peritoneum, which was extended laterally to the border of the skin incision. Two [employer] retractors were placed inside the incision. Incision was brought up to the level of the left fallopian tube. Fallopian tube was raised in the mid portion. A clamp was placed below the fimbriated end, most of the fallopian tube from the mesosalpinx traversing the isthmus portion of the tube. Another clamp was placed just below the first and 0 Vicryl tie was used to tie the mesosalpinx and the stump of the fallopian tube on the proximal side. Another stitch of the same kind was used for adequate hemostasis. Hemostasis appeared to be secure on ligated sites of the fallopian tube. Tube was incised above the stitched area. Same procedure was done on the fallopian tube on opposite side. Hemostasis appeared to be secure on ligated sites of either fallopian tubes. Ovaries were within normal limits. Uterus appears to be size. Announcing needle, lap, sponge and instrument count to be correct, abdomen was closed in layers as follows: Peritoneum with running stitches of #1 Vicryl, fascia edges of #1 Vicryl, subcutaneous tissue with running stitches of #1 Vicryl, and skin was reapproximated using subcuticular stitches of 4-0 Monocryl on a PS2 needle and also Dermabond was placed on the incision. The patient tolerated the procedure very well and was transferred to postanesthesia recovery room in stable and good condition. ESTIMATED BLOOD LOSS: Less than 5 mL. AMELIA MILTON MD Oct 21, 2018 17:28
[2018-10-21] MEDS: FENTAnyl 50 MCG/ML VIAL IV PRN ×2 (17:30→17:40)
--- NOTE | 2018-10-21 17:32 | DS ---
Date/Time of Note Date/Time of Note Home today or next day DATE: 10/21/18 TIME: 17:31 Obstetrical Discharge Record Final Diagnosis Final Diagnosis: Term delivered Other Final Diagnosis Status post vaginal delivery Vaginal Delivery Obstetrical Delivery: Spontaneous, Bilateral Tubal Ligation Condition on Discharge Physical Assessment Last Vitals: See nurse's notes Voiding: Yes Bowel Movement: Yes Breast: Soft, non-tender, Filling Fundus: Firm Abdomen and Incision: Abdomen is soft with firm fundus Incision is covered Episiotomy: Perineum is clean Calf Tenderness: No Patient Condition: Good AMELIA MILTON MD Oct 21, 2018 17:32
[2018-10-21] MEDS ORDERED: EPHEDrine 25 MG/5 ML SYG ONE (18:29)
[2018-10-21] MEDS ORDERED: PHENYLephrine (100 MCG/ML) 10ML SYG ONE (18:29)
[2018-10-21] MEDS ORDERED: SUGAMMADEX SODIUM 200 MG/2 ML VIAL IV ONE (18:42)
--- NOTE | 2018-10-21 18:56 | PD.PPDC ---
EVISCERATOR Discharge Instruction Provider Information Physician Information 33-year-old female had vaginal delivery and tubal ligation Diagnosis [id number] Final Diagnosis: [id number] Status post vaginal delivery and bilateral tubal ligation Condition [id number] Patient Condition: Ecmfi4p Good Diet [id number] Diet: Wiqwr9f Resume Regular Diet Activity/Restrictions [id number] Activity: Sahul1m May Shower [id number] Restrictions: Yniec1l No Lifting Nothing in the Vagina [id number] Return to Work or School: [id number] Dec 08, 2018 Wound/Drain Care Instructions [id number] Wound/Drain Care Instructions: [id number] Keep clean and dry Follow-up Follow-up with Physician: 2, 4, Week/Weeks (In clinic) Return to clinic for [id number] OB Instructions: Avpof7q Breast Tenderness Depression Comment: Pelvic rest and no lifting for 6 weeks AMELIA MILTON MD Oct 21, 2018 18:56
[2018-10-21] MEDS ORDERED: CIPR500T4 PO (18:57)
[2018-10-21] MEDS ORDERED: IBUP800T48 PO (19:01)
[2018-10-21] MEDS: CIPROFLOXACIN 500 MG TAB PO SCH (19:57)
[2018-10-21] MEDS: IBUPROFEN 800 MG TAB PO SCH (21:40)
[2018-10-22] MEDS: LACTATED RINGER'S 1,000 ML IV SCH ×2 (00:12→03:17)
[2018-10-22] MEDS: OXYCODONE/ASPIRIN (4.88/325) TAB PO PRN ×2 (01:41→12:48)
[2018-10-22 04:00] VITALS: BP 114/57; PULSE 75; RESP 18
[2018-10-22] MEDS: IBUPROFEN 800 MG TAB PO SCH ×2 (05:37→14:14)
[2018-10-22] MEDS: CIPROFLOXACIN 500 MG TAB PO SCH (05:37)
[2018-10-22 08:00] VITALS: BP 99/55; PULSE 68; RESP 18
[2018-10-22] MEDS ORDERED: DIPHTH/TET/ACEL PERTUSS (ADULT) 0.5 ML VIAL IM* ONE (09:00)
[2018-10-22] MEDS ORDERED: MEASLES,MUMPS,RUBELLA VACCINE INJ SC* ONE (09:00)
[2018-10-22] MEDS: LANOLIN HPA 1 PKT TOP PRN (10:20)
[2018-10-22] MEDS: SENNA/DOCUSATE NA (8.6MG/50MG) TAB PO PRN (10:20)
--- NOTE | 2018-10-23 18:01 | DELSUM ---
Delivery Summary A-C Datetime Report Generated by CPN: 10/23/2018 18:01 DELIVERY PERSONNEL Pegger: Hernandez, Wenbing MATERNAL INFORMATION Delivery Anesthesia: Local Medications in Delivery: pitocin, dilaudid Delivery QBL (ml): 450 Placenta Cultured: No Maternal Complications: None LABOR SUMMARY EDC: 10/22/2018 00:00 No. Babies in Womb: 1 Attempted: No Labor Anesthesia: None LABOR INFORMATION Reason for Induction: Not Applicable Onset of Labor: 10/20/2018 02:00 Complete Dilatation: 10/20/2018 13:10 Group B Beta Strep: Negative Antibiotics # of Doses: 1 Antibiotics Time of Last Dose: 10/20/2018 08:26 Steroids Given: None Reason Steroids Not Administered: Not Applicable MEMBRANES Membranes Rupture Method: Artificial Rupture of Membranes: 10/20/2018 12:06 Length of Rupture (hr): 1.93 Amniotic Fluid Color: Clear Amniotic Fluid Amount: Small Amniotic Fluid Odor: Normal STAGES OF LABOR Stage 1 hr: 11 Stage 1 min: 10 Stage 2 hr: 0 Stage 2 min: 52 Stage 3 hr: 0 Stage 3 min: 15 Total Time in Labor hr: 12 Total Time in Labor min: 17 VAGINAL DELIVERY Laceration Extension: Second Degree Laceration Type: Perineal Initial Vag Sponge Count: 10 Final Vag Sponge Count: 20 Initial Vag Sharps Count: 1 Final Vag Sharps Count: 4 Sponge Count Correct: Yes; Vaginal Sweep Performed Sharps Count Correct: Yes Count Comment: 10 raytex, 3 sharps added BABY A INFORMATION Delivery Date/Time: 10/20/2018 14:02 Method of Delivery: Vaginal Born in Route : No : N/A Forceps: N/A Vacuum Extraction: N/A Shoulder Dystocia : N/A SHOULDER DYSTOCIA BABY A Infant Delivery Date/Time: 10/20/2018 14:02 PRESENTATION/POSITION BABY A Presentation: Cephalic Cephalic Presentation: Vertex Vertex Position: Right Occipital Anterior Breech Presentation: N/A PLACENTA INFORMATION BABY A Placenta Delivery Time : 10/20/2018 14:17 Placenta Method of Delivery: Spontaneous Placenta Status: Delivered SCORES BABY A Heart Rate 1 min: >100 bpm Resp Effort 1 min: Good Cry Reflex Irritability 1 min: Cough/Sneeze/Pulls Away Muscle Tone 1 min: Active Motion Color 1 min: Body [place], Extremit Blue Resuscitation Effort 1 min: Tactile Stimulation SCORE 1 MIN: 9 Heart Rate 5 min: >100 bpm Resp Effort 5 min: Good Cry Reflex Irritability 5 min: Cough/Sneeze/Pulls Away Muscle Tone 5 min: Active Motion Color 5 min: Body [place], Extremit Blue SCORE 5 MIN: 9 INFANT INFORMATION BABY A Gestational Age at Delivery: 39.5 Gestational Status: Full Term- 39- 40.6 Weeks Outcome : Liveborn, with signs of life Infant Condition : Stable Sex: Male IDENTIFICATION/MEDS BABY A ID Band Number: [id number] ID Band Location: Right Leg; Left Arm Sensor Applied: Yes Sensor Number: [id number] Sensor Location : Cord Clamp WEIGHT/LENGTH BABY A Birthweight (gm): 3725 Weight (lb): 8 Infant Weight (oz): 3 Infant Length (in): 20.00 Length (cm): 50.80 CORD INFORMATION BABY A No. Cord Vessels: 3 Nuchal Cord : N/A Cord Blood Taken: Yes Suction: Mouth; Nose ASSESSMENT BABY A Infant Complications: None Physical Findings at Delivery: Within Normal Limits Infant Respirations: Appears Normal Jazz Musician/ALS Called : No Care By: JUNIE Transferred To: Remains with Mother
== END 2018-10-22 15:35 | disposition home or self-care (01) | DRG 798 ==
LOC: OBT 07:58 → L-D 07:59 → OBT 08:04 → L-D 08:05 → PP1 15:49
PROVIDERS: ADMIT Obstetrics & Gynecology; ATTEND Obstetrics & Gynecology
PROC: 10E0XZZ Delivery of Products of Conception, External Approach (ICD-10-PCS; principal; 2018-10-20)
PROC: 0UT70ZZ Resection of Bilateral Fallopian Tubes, Open Approach (ICD-10-PCS; 2018-10-21)
DX: O80 Encounter for full-term uncomplicated delivery (principal); Z37.0 Single live birth; Z3A.39 39 weeks gestation of pregnancy; Z30.2 Encounter for sterilization
CPT/HCPCS: 85014; 85018; 85025; 85610; 85730; 86592; 86850; 86900; 86901; 87340; 88302; G0463; J0290; J0690; J1100; J1170; J1885; J2250; J2370; J2405; J2590; J2710; J2765; J2795; J3010; J3370; J7120